=== PATIENT | female | born 1955 | race Caucasian/White ===

== ENCOUNTER 2017-09-12 20:43 | Emergency (ER) | payer BC ==
[2017-09-12] MEDS ORDERED: Promethazine HCl 25 MG/ML VIAL ONE (21:18)
[2017-09-12] MEDS ORDERED: diphenhydrAMINE 50 MG/ML VIAL ONE (21:19)
[2017-09-12 21:25] LABS: #Lymphocytes 0.7 thou/uL (1.20-3.40); #Monocytes 0.4 thou/uL (0.11-0.59); #Neutrophils 3.9 thou/uL (1.40-6.50); %Basophils 0.5 % (0.0-1.0); %Eosinophils 0.2 % (0.0-10.0); %Lymphocytes 14.2 % (21.0-51.0); %Neutrophils 77.1 % (42.0-75.0); Hemoglobin 13.9 g/dL (12.0-16.0); Mean Corpuscular HGB CONC 35.3 g/dL (32.0-36.0); Mean Corpuscular Hemoglobin 26.6 pg (27.0-31.0); Mean Corpuscular Volume 75.4 fl (81.0-99.0); Platelet Count 242 thou/uL (130-400); Red Blood Cell (RBC) Count 5.21 mill/uL (4.20-5.40); White Blood Cell (WBC) Count 5.1 thou/uL (4.8-10.8)
[2017-09-12 21:34] LABS: Anion Gap 15 mmol/L (10-20); BUN (Urea Nitrogen) 12 mg/dL (9.8-20.1); Calc. Creatinine Clearance 0 mL/min (70-130); Calcium 9.2 mg/dL (7.8-10.44); Carbon Dioxide 20 mmol/L (23-31); Chloride 97 mmol/L (98-107); Estimated GFR-MDRD 84; Glucose 114 mg/dL (80-115); Potassium 4.5 mmol/L (3.5-5.1); Sodium 127 mmol/L (136-145)
[2017-09-12] MEDS ORDERED: Ketorolac Tromethamine 30 MG/ML VIAL ONE (21:45)
--- NOTE | 2017-09-12 21:54 | CT ---
CT BRAIN WITHOUT CONTRAST: 09/12/2017 HISTORY: A noncontrast CT was performed for evaluation of headache. COMPARISON: Prior MRI, dated 05/08/2010. FINDINGS: The ventricles are normal in size with no shift. No intracranial bleeding, subarachnoid hemorrhage, edema, or mass is seen. There is a focal subcentimeter low density area near the left sylvian fissur e, which could be a tiny lacunar infarct. It is more likely old than new and is probably not related to the current symptoms. It is not seen on the 2011 MRI. The exam is otherwise unremarkable. IMPRESSION: 1. No acute intracranial findings. 2. Possible prior lacunar infarct near the left sylvian fissure. There is a possibility that this c ould be volume averaging with the fissure itself, as well. POS: HOME
== END 2017-09-12 22:55 | disposition home or self-care (01) ==
LOC: BURERS 20:43
DX: I10 Essential (primary) hypertension (principal); E87.1 Hypo-osmolality and hyponatremia; Z79.899 Other long term (current) drug therapy
CPT/HCPCS: 70450; 80048; 85025; 85652; 96361; 96374; 96375; J1200; J1885; J2550